=== PATIENT | male | born 1980 | race American Indian/Alaskan Native ===

== ENCOUNTER 2021-11-30 15:09 | Emergency (ER) | payer SELFPAY ==
[2021-11-30 15:34] VITALS: BP 145/99
--- NOTE | 2021-11-30 16:45 | Emergency Department Report ---
ED Rash HPI - HPI Chief Complaint: Skin Rash Stated Complaint: RASH Duration: 5 Days Location: Head, Back, Lower Extremities Rash Symptoms: Yes Itching, Yes Peeling, Yes Blistering, No Facial Swelling, No Tongue/Oral Swelling, No Breathing Difficulties, No Choking Sensation, No Wheezing/Dyspnea, No Fever, No Lightheaded, No Malaise, No Myalgias Severity: moderate Other History: 41-year-old male with a history of eczema to the ED with complaint eczema flare that has caused his hands peel with oozing and drainage. Patient states that he have intense itching. Patient states that he is currently out of his triamcinolone ointment. Patient is alert and oriented x3 no acute distress noted. No ill appearance noted. No acute distress noted ED Review of Systems ROS: Stated complaint: RASH Other details as noted in HPI Constitutional: denies: chills, fever Eyes: denies: eye pain, eye discharge, vision change ENT: denies: ear pain, throat pain Respiratory: denies: cough, shortness of breath, wheezing Cardiovascular: denies: chest pain, palpitations Endocrine: no symptoms reported Gastrointestinal: denies: abdominal pain, nausea, diarrhea Genitourinary: denies: urgency, dysuria Musculoskeletal: denies: back pain, joint swelling, arthralgia Skin: rash. denies: lesions Neurological: denies: headache, weakness, paresthesias Psychiatric: denies: anxiety, depression Hematological/Lymphatic: denies: easy bleeding, easy bruising ED Past Medical Hx - Past Medical History Previous Medical History?: Yes Additional medical history: eczema - Surgical History Past Surgical History?: No - Social History Smoking Status: Never Smoker Substance Use Type: None - Medications Home Medications: Home Medications Medication Instructions Recorded Confirmed Last Taken Type Amoxicillin/Potassium Clav 1 each PO BID 10 Days #20 tab 11/30/21 Unknown Rx [Augmentin 875-125 Tablet] Triamcinolone Acetonide 30 gm TP BID 5 Days #45 gram 11/30/21 Unknown Rx Rash Exam - Exam General: Vital signs noted. No distress. Alert and acting appropriately. HEENT: No Periorbital Edema, No Conjuctival Injection, No Chemosis, No Perioral Edema, No Tongue Edema, No Uvular Edema, No Compromised Airway, No Drooling Lungs: Yes Good Air Exchange (Normal Breath Sounds), No Wheezes, No Ronchi, No Stridor, No Cough, No Labored Respirations, No Retractions, No Use of Accessory Muscles, No Other Abnormal Lung Sounds Heart: Yes Regular, No Murmur Skin: Yes Urticarial Rash, Yes Weeping, Yes Erythema, Yes Edema, No Maculopapular Rash, No Morbilliform rash, No Bulla(e), No Excoriations, No Tenderness, No Encrustations, No Other Other: Positive: Abdomen Normal, Neurologic Normal, Musculoskeletal Normal ED Course Vital Signs 11/30/21 11/30/21 15:33 15:34 Temperature 98.4 F 98.4 F Pulse Rate 112 H 112 H Respiratory 18 18 Rate Blood Pressure 145/99 Blood Pressure 145/99 [Right] O2 Sat by Pulse 97 97 Oximetry ED Medical Decision Making - Medical Decision Making 41-year-old male with a history of eczema to the ED with complaint eczema flare that has caused his hands peel with oozing and drainage. Patient states that he have intense itching. Patient states that he is currently out of his triamcinolone ointment. Patient is alert and oriented x3 no acute distress noted. No ill appearance noted. No acute distress noted. Physical examination shows erythema, edema, and crusted hand with drainage noted to the bilateral hand. Erythema noted around the neck area. We will treat the patient for cellulitis. Rechecked the patient is resting quietly quietly and comfortable and feeling better. I discussed the results of diagnostic study, my clinical impression and the plan for further treatment with the patient. Patient agrees with plan and discharge at this present time. All question addressed. I have given the patient instruction regarding a diagnosis ,expectation ,follow- up and return precaution. I explained to the patient that emergent condition may arise and to return to the ED for new worsen and any new persisting condition. I have explained the importance of following up with the primary care physician or referral physician listed below has instructed. The patient verbalized understanding of discharge instruction. Critical care attestation.: If time is entered above; I have spent that time in minutes in the direct care of this critically ill patient, excluding procedure time. ED Disposition Clinical Impression: Cellulitis Eczema Qualifiers: Eczema type: unspecified Qualified Code(s): L30.9 - Dermatitis, unspecified Disposition: 01 HOME / SELF CARE / HOMELESS Is pt being admited?: No Does the pt Need Aspirin: No Condition: Stable Instructions: Eczema, Cellulitis, Adult, [id number] Additional Instructions: Take medication as prescribed Return to the ED for any worsening symptoms Prescriptions: Amoxicillin/Potassium Clav [Augmentin 875-125 Tablet] 1 each PO BID 10 Days #20 tab Triamcinolone Acetonide 30 gm TP BID 5 Days #45 gram Referrals: PRIMARY CARE, [Referring] - 3-[address] [facility] [Provider Group] - 3-5 Days Forms: Work/School Release Form(ED)
== END 2021-11-30 17:20 | disposition home or self-care (01) ==
LOC: ED 15:09
DX: L30.9 Dermatitis, unspecified (principal); L03.818 Cellulitis of other sites
CPT/HCPCS: 99282